=== PATIENT | female | born 1990 | race Caucasian/White ===

== ENCOUNTER → 2016-08-06 | Outpatient (CLI) | payer BC, OTHER | LOC: MW.CHFP 09:22 | PROVIDERS: ATTEND Physician Assistant | DX: J02.0 Streptococcal pharyngitis (principal) | CPT/HCPCS: 87880 ==

== ENCOUNTER 2016-08-07 04:48 | Observation (INO) | payer BC, OTHER ==
[2016-08-07] MEDS ORDERED: cefTRIAXone 1,000 MG in Sodium Chloride 0.9% 50 ML IV ONE (05:16)
[2016-08-07] MEDS ORDERED: Ondansetron 4 MG/2 ML SDV IVPUSH PRN (05:16)
[2016-08-07] MEDS: Sodium Chloride 0.9% 1,000 ML IV SCH ×2 (05:25→11:11)
[2016-08-07] MEDS ORDERED: cefTRIAXone 1 GM in Premix Bag 1 BAG IV ONE (05:34)
--- NOTE | 2016-08-07 05:39 | EDM.PDOC ---
ED HPI GI/ABDOMINAL - General Chief Complaint: Gastrointestinal Problem Stated Complaint: THROWING UP Time Seen by Provider: 08/07/16 05:00 Source of Information: Reports: Patient, Family, RN - History of Present Illness INITIAL COMMENTS - FREE TEXT/NARRATIVE: She presented to the emergency department with about a 24-hour history of vomiting and diarrhea. She recently was diagnosed with strep throat. She took one dose of azithromycin. She wonders if the erythromycin may have caused her vomiting and diarrhea. 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: - Infectious Disease History Infectious Disease History: Reports: Chicken pox Social & Family History - Family History Family Medical History: Noncontributory - Tobacco Use Smoking Status *Q: Never Smoker Second Hand Smoke Exposure: No - Caffeine Use Caffeine Use: Reports: Coffee Caffeine Use Comment: 2cups/day - Alcohol Use Days Per Week of Alcohol Use: 0 - Recreational Drug Use Recreational Drug Use: No ED ROS GENERAL - Review of Systems Review Of Systems: See Below Constitutional: Denies: fever HEENT: Reports: Other (She has a sore throat.) Respiratory: Denies: Shortness of Breath, Cough, Sputum Cardiovascular: Denies: Chest pain GI/Abdominal: Reports: Abdominal pain, Diarrhea (Some abdominal cramping.) ED EXAM, GI/ABD - Physical Exam Exam: See Below General Appearance: alert Throat/Mouth: Other (Mild to moderate posterior pharyngeal erythema noted.) Head: other (Moist oral mucosa) Neck: supple Respiratory/Chest: no respiratory distress, lungs clear Cardiovascular: regular rate, rhythm GI/Abdominal: soft, non tender Comments: Normal mentation Course - Vital Signs Last Recorded V/S: Last Vital Signs Temp 97.7 F 08/07/16 07:00 Pulse 86 08/07/16 07:00 Resp 16 08/07/16 07:00 BP 105/70 08/07/16 07:00 Pulse Ox 97 08/07/16 07:00 - Orders/Labs/Meds Orders: Active Orders 24 hr Category Date Time Status Ondansetron [Zofran] Med 08/07/16 05:16 Active 4 mg IVPUSH Q4H PRN Sodium Chloride 0.9% [Normal Saline] 1,000 ml Med 08/07/16 05:30 Active IV ASDIRECTED Medication Orders Sodium Chloride (Normal Saline) 1,000 mls @ 500 mls/hr IV ASDIRECTED NOLA Last Admin: 08/07/16 05:25 Dose: 500 mls/hr Ondansetron HCl (Zofran) 4 mg IVPUSH Q4H PRN PRN Reason: Nausea Last Admin: 08/07/16 05:45 Dose: 4 mg Labs: Laboratory Tests 08/07/16 08/07/16 08/07/16 Range/Units 05:25 05:25 05:25 WBC 9.45 (4.0-11.0) K/uL RBC 5.11 (4.30-5.90) M/uL Hgb 15.3 (12.0-16.0) g/dL Hct 45.9 (36.0-46.0) % MCV 89.8 (80.0-98.0) fL MCH 29.9 (27.0-32.0) pg MCHC 33.3 (31.0-37.0) g/dL RDW Std Deviation 43.0 (28.0-62.0) fl RDW Coeff of Magalie 13 (11.0-15.0) % Plt Count 176 (150-400) K/uL MPV 10.70 (7.40-12.00) fL Neut % (Auto) 89.7 H (48.0-80.0) % Lymph % (Auto) 4.0 L (16.0-40.0) % Dawson % (Auto) 6.0 (0.0-15.0) % Eos % (Auto) 0.2 (0.0-7.0) % Baso % (Auto) 0.1 (0.0-1.5) % Neut # (Auto) 8.5 H (1.4-5.7) K/uL Lymph # (Auto) 0.4 L (0.6-2.4) K/uL Dawson # (Auto) 0.6 (0.0-0.8) K/uL Eos # (Auto) 0.0 (0.0-0.7) K/uL Baso # (Auto) 0.0 (0.0-0.1) K/uL Nucleated RBC % 0.0 /100WBC Nucleated RBCs # 0 K/uL Sodium 141 (136-146) mmol/L Potassium 4.3 (3.5-5.1) mmol/L Chloride 108 (98-110) mmol/L Carbon Dioxide 19 L (21-31) mmol/L BUN 13 (6.0-23.0) mg/dL Creatinine 0.8 (0.6-1.5) mg/dL Est Cr Clr Drug Dosing 84.11 mL/min Estimated GFR (MDRD) > 60.0 ml/min Glucose 97 (60-110) mg/dL Calcium 9.2 (8.8-10.8) mg/dL Magnesium 1.7 (1.5-2.3) mEq/L Total Bilirubin 0.8 (0.1-1.5) mg/dL AST 19 (5-40) IU/L ALT 15 (8-54) IU/L Alkaline Phosphatase 60 (40-150) Total Protein 8.4 H (6.0-8.0) g/dL Albumin 4.8 (3.5-5.0) g/dL Globulin 3.6 H (2.0-3.5) g/dL Albumin/Globulin Ratio 1.3 (1.3-2.8) HCG, Qual NEGATIVE (NEG) Meds: Medications Generic Name Dose Route Start Last Admin Trade Name Freq PRN Reason Stop Dose Admin Sodium Chloride 1,000 mls @ 500 mls/hr 08/07/16 05:30 08/07/16 05:25 Normal Saline IV 500 mls/hr ASDIRECTED NOLA Administration Ondansetron HCl 4 mg 08/07/16 05:16 08/07/16 05:45 Zofran IVPUSH 4 mg Q4H PRN Administration Nausea Discontinued Medications Generic Name Dose Route Start Last Admin Trade Name Freq PRN Reason Stop Dose Admin Ceftriaxone Sodium 1,000 mg/ 50 mls @ 200 mls/hr 04/01/17 05:16 08/07/16 06: 12 Sodium Chloride IV 08/07/16 05:30 Not Given ONETIME ONE Ceftriaxone Sodium/Dextrose 1 50 mls @ 100 mls/hr 08/07/16 05:34 08/07/16 05: 46 gm/ Premix IV 08/07/16 06:03 100 mls/hr ONETIME ONE Administration Departure - Departure Time of Disposition: 07:13 Disposition: Refer to Observation Clinical Impression: Dehydration, Gastroenteritis Forms: ED Department Discharge Additional Instructions: She has an anion gap of over 20. Recommended observation the hospital for further IV fluids. I discussed this with the patient and her family. I discussed with Dr. Marinelli who will be accepting physician - My Orders Last 24 Hours: My Active Orders 08/07/16 05:16 Ondansetron [Zofran] 4 mg IVPUSH Q4H PRN 08/07/16 05:30 Sodium Chloride 0.9% [Normal Saline] 1,000 ml IV ASDIRECTED - Assessment/Plan Last 24 Hours: My Active Orders 08/07/16 05:16 Ondansetron [Zofran] 4 mg IVPUSH Q4H PRN 08/07/16 05:30 Sodium Chloride 0.9% [Normal Saline] 1,000 ml IV ASDIRECTED
[2016-08-07 06:06] LABS: CHLORIDE,CL 108 mmol/L (98-110); SODIUM,NA 141 mmol/L (136-146)
[2016-08-07] MEDS ORDERED: Acetaminophen 325 MG Tab PO PRN (07:17)
[2016-08-07 14:34] LABS: CHLORIDE,CL 114 mmol/L (98-110); SODIUM,NA 142 mmol/L (136-146)
[2016-08-07 17:32] VITALS: BP 115/76
--- NOTE | 2016-08-07 18:42 | PCM.DCSUM1 ---
Discharge Summary - Hospital Course Free Text/Narrative:: sudden onset severe N&V and watery diarrhea. 2 y o daughter mild respiratory sx , no overt contact with sick people or animals, no travel Improved with IV fluids, one dose odansetron given, diet advanced and tolerated with no further emesis, though watery and now blood red bowel movement ( from food coloring, negative for occult blood) Pt stable and eager to go home continue nursing her - Discharge Data Discharge Date: 08/07/16 Discharge Disposition: Home, Self-Care 01 Condition: Good - Patient Instructions Diet: Drink 8-10+ Glasses/Day Activity: As Tolerated - Discharge Plan Home Medications: Home Meds PNV95/Ferrous Fumarate/FA [ Multivitamins] 1 each PO DAILY 02/19/14 [ History] Azithromycin 500 mg PO DAILY 08/07/16 [History] - Discharge Summary/Plan Comment DC Time >30 min.: No - Patient Data Vitals - Most Recent: Last Vital Signs Temp 37.0 C 08/07/16 15:00 Pulse 92 08/07/16 15:00 Resp 16 08/07/16 15:00 BP 115/76 08/07/16 15:00 Pulse Ox 97 08/07/16 15:00 Weight - Most Recent: 50 kg I&O - Last 24 hours: Intake & Output 08/07/16 08/07/16 08/07/16 06:59 14:59 22:59 Intake Total 541 Balance 541 Lab Results - Last 24 hrs: Laboratory Results - last 24 hr 08/07/16 08/07/16 Range/Units 14:05 14:05 Sodium 142 (136-146) mmol/L Potassium 3.8 (3.5-5.1) mmol/L Chloride 114 H (98-110) mmol/L Carbon Dioxide 21 (21-31) mmol/L BUN 8 (6.0-23.0) mg/dL Creatinine 0.7 (0.6-1.5) mg/dL Est Cr Clr Drug Dosing TNP Estimated GFR (MDRD) > 60.0 ml/min Glucose 85 (60-110) mg/dL Calcium 7.7 L (8.8-10.8) mg/dL Magnesium 1.6 (1.5-2.3) mEq/L JAYDON Results - Last 24 hrs: Microbiology 08/07/16 17:00 Stool Occult Blood (JAYDON) - Final Stool / Feces NEGATIVE OCCULT BLOOD Med Orders - Current: Current Medications Acetaminophen (Tylenol) 650 mg PO Q4H PRN PRN Reason: Pain (Mild 1-3)/fever Sodium Chloride (Normal Saline) 1,000 mls @ 200 mls/hr IV ASDIRECTED NOLA Last Admin: 08/07/16 11:11 Dose: 500 mls/hr Ondansetron HCl (Zofran) 4 mg IVPUSH Q4H PRN PRN Reason: Nausea Last Admin: 08/07/16 05:45 Dose: 4 mg Discontinued Medications Ceftriaxone Sodium 1,000 mg/ (Sodium Chloride) 50 mls @ 200 mls/hr IV ONETIME ONE Stop: 08/07/16 05:30 Last Admin: 08/07/16 06:12 Dose: Not Given Ceftriaxone Sodium/Dextrose 1 (gm/ Premix) 50 mls @ 100 mls/hr IV ONETIME ONE Stop: 08/07/16 06:03 Last Admin: 08/07/16 05:46 Dose: 100 mls/hr *Q Meaningful Use (DIS) - VTE *Q VTE Criteria *Q: - Stroke *Q Stroke Criteria *Q: - AMI *Q AMI Criteria *Q:
--- NOTE | 2016-08-11 15:42 | PCM.HP ---
H&P History of Present Illness - General Date of Service: 08/07/16 Admit Problem/Dx: Admission Diagnosis/Problem Admission Diagnosis/Problem Dehydration - History of Present Illness Initial Comments - Free Text/Narative: 26 y o woman recently started on azithromycin for strep throat comes in with severe N&V and diarrhea No travel orc ontact with overtly ill people Onset of Symptoms: Reports: today Duration of Symptoms: Reports: Hour(s):, Getting worse abdominal area Pain Score (Numeric/FACES): 1 - Related Data Allergies/Adverse Reactions: Allergies Allergy/AdvReac Type Severity Reaction Status Date / Time amoxicillin [Amoxicillin] Allergy Unknown Rash Verified 08/07/16 04:56 Sulfa (Sulfonamide Allergy Unknown Rash Verified 08/07/16 04:56 Antibiotics) Home Medications: Home Meds PNV95/Ferrous Fumarate/FA [ Multivitamins] 1 each PO DAILY 02/19/14 [ History] Azithromycin 500 mg PO DAILY 08/07/16 [History] Past Medical History - Past Health History Medical/Surgical History: Denies Medical/Surgical History HEENT History: Reports: Impaired vision Other 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 History: 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 glasses 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 ) - Infectious Disease History Infectious Disease History: Reports: Chicken pox Social & Family History - Family History Family Medical History: Noncontributory - Tobacco Use Smoking Status *Q: Never Smoker Second Hand Smoke Exposure: No - Caffeine Use Caffeine Use: Reports: Coffee Caffeine Use Comment: 2cups/day - Alcohol Use Alcohol Use History: No Days Per Week of Alcohol Use: 0 - Recreational Drug Use Recreational Drug Use: No H&P Review of Systems - Review of Systems: Review Of Systems: See Below General: Reports: weakness HEENT: Reports: other (sore throat better) Pulmonary: Reports: No Symptoms Cardiovascular: Reports: no symptoms Gastrointestinal: Reports: Diarrhea, Nausea, Vomiting Genitourinary: Reports: no symptoms Musculoskeletal: Reports: no symptoms Skin: Reports: no symptoms Hematologic/Lymphatic: Reports: no symptoms Immunologic: Reports: no symptoms Exam - Exam Exam: See Below - Vital Signs Vital Signs: Last Vital Signs Temp 37.0 C 08/07/16 15:00 Pulse 92 08/07/16 15:00 Resp 16 08/07/16 15:00 BP 115/76 08/07/16 15:00 Pulse Ox 97 08/07/16 15:00 Weight: 50 kg - Exam General: alert, oriented HEENT: Conjunctiva clear, Mucosa moist & pink, Posterior pharynx clear (mild erythema no exudate) Neck: No: lymphadenopathy Lungs: Clear to auscultation Cardiovascular: regular rate Abdomen: soft. No: guarding Rectal (Female) Exam: Deferred Extremities: normal inspection Skin: warm Psychiatric: normal affect - Patient Data Result Diagrams: 08/07/16 05:25 08/07/16 14:05 *Q Meaningful Use (ADM) - VTE *Q VTE Criteria *Q: - Stroke *Q Stroke Criteria *Q: - AMI *Q AMI Criteria *Q: Problem List Initiated/Reviewed/Updated: Yes Assessment/Plan Comment:: gastroenteritis dehydration questionable strep throat will continue aggressive rehydration started in ER hold azithromycin for questionable indication and liink to symptoms
== END 2016-08-07 19:00 | disposition home or self-care (01) ==
LOC: MW.ED 04:48 → MW.MS 07:17
PROVIDERS: ADMIT Family Medicine; ATTEND Internal Medicine
DX: R11.2 Nausea with vomiting, unspecified (principal); R19.7 Diarrhea, unspecified; Z79.899 Other long term (current) drug therapy
CPT/HCPCS: 80048; 80053; 82272; 83735; 84703; 85025; 96361; 96365; 96375; 99285; G0378; J0696; J2405; J7040; 99284

== ENCOUNTER 2017-07-27 18:12 | Emergency (ER) | payer BC ==
[2017-07-27] MEDS ORDERED: Acetaminophen/HYDROcodone 325-5 MG Tab PO ONE (18:18)
[2017-07-27] MEDS ORDERED: Ketorolac 60 MG/2 ML SDV IM ONE (18:18)
--- NOTE | 2017-07-27 18:20 | EDM.PDOC ---
ED HPI GENERAL MEDICAL PROBLEM - General Stated Complaint: BACK PAIN Time Seen by Provider: 07/27/17 18:13 - History of Present Illness INITIAL COMMENTS - FREE TEXT/NARRATIVE: HISTORY AND PHYSICAL: History of present illness: Patient is 27-year-old female presents with a concern of lower back pain 2-3 months she does have a follow-up appointment within next week but has been unable to tolerate the discomfort she denies numbness weakness denies incontinence or retention of bowel or bladder nice trauma nice denies vaginal discharge or irregular bleeding denies urinary symptoms Review of systems: As per history of present illness and below otherwise all systems reviewed and negative. Past medical history: As per history of present illness and as reviewed below otherwise noncontributory. Surgical history: As per history of present illness and as reviewed below otherwise noncontributory. Social history: No reported history of drug or alcohol abuse. Family history: As per history of present illness and as reviewed below otherwise noncontributory. Physical exam: HEENT: Atraumatic, normocephalic, pupils reactive, negative for conjunctival pallor or scleral icterus, mucous membranes moist, throat clear, neck supple, nontender, trachea midline. Lungs: Clear to auscultation, breath sounds equal bilaterally, chest nontender. Heart: S1S2, regular, negative for clicks, rubs, or JVD. Abdomen: Soft, nondistended, nontender. Negative for masses or hepatosplenomegaly. Negative for costovertebral tenderness. Pelvis: Stable nontender. Genitourinary: Deferred. Rectal: Deferred. Extremities: Atraumatic, negative for cords or calf pain. Neurovascular unremarkable. Neuro: Awake, alert, oriented. Cranial nerves II through XII unremarkable. Cerebellum unremarkable. Motor and sensory unremarkable throughout. Exam nonfocal. Back: Patient has tenderness in the paravertebral region of her lumbosacral area is no vertebral body or point tenderness patient able stand on her toes back on her heels deep tendon reflexes are normal motor and sensory are normal Diagnostics: X-ray lumbar spine Therapeutics: Toradol 60 mg IM hydrocodone 5 mg by mouth Impression: #1 low back pain etiology to be determined Definitive disposition and diagnosis as appropriate pending reevaluation and review of above. 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 ED EXAM, GENERAL - Physical Exam Exam: See Below (See dictation) Course - Vital Signs Last Recorded V/S: Last Vital Signs Temp 36.7 C 07/27/17 18:25 Pulse 86 07/27/17 18:25 Resp 18 07/27/17 18:25 BP 135/74 07/27/17 18:25 Pulse Ox 100 07/27/17 18:25 - Orders/Labs/Meds Orders: Active Orders 24 hr Category Date Time Status Lumbar Spine 2 or 3V [CR] Stat Exams 07/27/17 18:18 Ordered Meds: Medications Discontinued Medications Generic Name Dose Route Start Last Admin Trade Name Hank PRN Reason Stop Dose Admin Hydrocodone Bitart/Acetaminophen 1 tab 07/27/17 18:18 07/27/17 18:33 [place] 325-5 Mg PO 07/27/17 18:19 1 tab ONETIME ONE Administration Ketorolac Tromethamine 60 mg 07/27/17 18:18 07/27/17 18:35 Toradol IM 07/27/17 18:19 60 mg ONETIME ONE Administration Departure - Departure Time of Disposition: 18:50 Disposition: Home, Self-Care 01 Condition: Good Clinical Impression: Back pain - Discharge Information Referrals: Marcus Collazo MD [Primary Care Provider] - Additional Instructions: The following information is given to patients seen in the emergency department who are being discharged to home. This information is to outline your options for follow-up care. We provide all patients seen in our emergency department with a follow-up referral. The need for follow-up, as well as the timing and circumstances, are variable depending upon the specifics of your emergency department visit. If you don't have a primary care physician on staff, we will provide you with a referral. We always advise you to contact your personal physician following an emergency department visit to inform them of the circumstance of the visit and for follow-up with them and/or the need for any referrals to a consulting specialist. The emergency department will also refer you to a specialist when appropriate. This referral assures that you have the opportunity for followup care with a specialist. All of these measure are taken in an effort to provide you with optimal care, which includes your followup. Under all circumstances we always encourage you to contact your private physician who remains a resource for coordinating your care. When calling for followup care, please make the office aware that this follow-up is from your recent emergency room visit. If for any reason you are refused follow-up, please contact the [facility] emergency department at and asked to speak to the emergency department charge nurse. Hydrocodone Flexeril Medrol as prescribed keep scheduled appointment with private medical doctor return as needed as discussed - My Orders Last 24 Hours: My Active Orders 07/27/17 18:18 Lumbar Spine 2 or 3V [CR] Stat - Assessment/Plan Last 24 Hours: My Active Orders 07/27/17 18:18 Lumbar Spine 2 or 3V [CR] Stat
[2017-07-27 19:41] VITALS: BP 118/76
--- NOTE | 2017-07-28 10:47 | CR ---
EXAM DATE: 07/27/17 PATIENT'S AGE: 27 Patient: ANA GO Facility: [place], [place] Site . Site : 1990 Study: XRay Spine Lumbar [id number]/[id number] 7:05:55 PM Ordering Physician: Kya Raymundo Final Report: INDICATION: Low back pain TECHNIQUE: Lumbar spine 4 view. COMPARISON: None FINDINGS: Bones: Alignment is normal. No fractures or significant bone lesions. Joints: Disc spaces and facets are unremarkable. Soft tissues: Unremarkable. IMPRESSION: Unremarkable lumbar spine. Dictated by Margie Hong MD @ Jul 27 2017 7:22PM (Electronic Signature) Report Signed by Proxy. NICOLASA
== END 2017-07-27 19:40 | disposition home or self-care (01) ==
LOC: MW.ED 18:12
DX: M54.5 Low back pain (principal); Z88.1 Allergy status to other antibiotic agents; Z88.2 Allergy status to sulfonamides
CPT/HCPCS: 72100; 96372; 99283; A9270; J1885; 99282

== ENCOUNTER 2018-12-05 15:33 | Inpatient (IN) | payer BC ==
[2018-12-05] MEDS ORDERED: Sodium Chloride 0.9% 2.5 ML Syringe FLUSH PRN (15:56)
[2018-12-05] MEDS ORDERED: Nalbuphine 10 MG/1 ML Vial IVPUSH PRN (15:56)
[2018-12-05] MEDS ORDERED: Water For Irrigation,Sterile 1,000 ML Container IRR PRN (15:56)
[2018-12-05] MEDS ORDERED: Methylergonovine 0.2 MG/1 ML Amp IM PRN (15:56)
[2018-12-05] MEDS ORDERED: Misoprostol 200 MCG Tab PO PRN (15:56)
[2018-12-05] MEDS ORDERED: Ondansetron 4 MG/2 ML SDV IVPUSH PRN (15:56)
[2018-12-05] MEDS ORDERED: Carboprost Tromethamine 250 MCG/1 ML Amp IM PRN (15:56)
[2018-12-05] MEDS ORDERED: Butorphanol 1 MG/ML SDV IVPUSH PRN (15:56)
[2018-12-05] MEDS ORDERED: Sodium Chloride 0.9% 10 ML Syringe FLUSH PRN (15:56)
[2018-12-05] MEDS ORDERED: Lidocaine 1% 50 ML MDV INJECT PRN (15:56)
[2018-12-05] MEDS ORDERED: Sodium Chloride 0.9% 10 ML SDV IV PRN (15:56)
[2018-12-05] MEDS ORDERED: Tranexamic Acid 1,000 MG in Sodium Chloride 0.9% 100 ML IV PRN (15:56)
[2018-12-05] MEDS ORDERED: Lactated Ringers 1,000 ML IV SCH (16:00)
[2018-12-05] MEDS ORDERED: Oxytocin/0.9 % Sodium Chloride 30 UNIT/500 ML BAG IV SCH (16:00)
[2018-12-05] MEDS ORDERED: ceFAZolin 2 GM in Premix Bag 1 BAG IV ONE (16:08)
[2018-12-05] MEDS ORDERED: oxyCODONE 5 MG Tab PO PRN (18:10)
[2018-12-05] MEDS ORDERED: Benzocaine/Menthol 20%-0.5% Spray 78 GM Cannister TOP PRN (18:10)
[2018-12-05] MEDS ORDERED: Docusate Sodium 100 MG Cap PO PRN (18:10)
[2018-12-05] MEDS ORDERED: Ibuprofen 400 MG Tab PO PRN (18:10)
[2018-12-05] MEDS ORDERED: Lanolin 100% Cream 7 GM Tube TOP PRN (18:10)
[2018-12-05] MEDS ORDERED: Witch Hazel Medicated Pads 40/Jar TOP PRN (18:10)
[2018-12-05] MEDS ORDERED: Aluminum Hydroxide/Magnesium Hydroxide/Simethicone Susp 30 ML Cup PO PRN (18:10)
[2018-12-05] MEDS ORDERED: Acetaminophen 500 MG Tab PO PRN ×2 (18:10)
[2018-12-05] MEDS ORDERED: Bisacodyl 10 MG Supp RECTAL PRN (18:10)
--- NOTE | 2018-12-05 18:13 | PCM.OPNOTE ---
- General Post-Op/Procedure Note Date of Surgery/Procedure: 12/05/18 Operative Procedure(s): Vaginal delivery, repair of 2nd degree vaginal tear Findings: Live male delivered. Terminal meconium. 8 and 8, weight pending, spontaneous vaginal delivery, intact placenta, 3VC Pre Op Diagnosis: 28yo female at 40/4 presenting in active labor Post-Op Diagnosis: Spontaneous vaginal delivery, 2nd degree vaginal tear Anesthesia Technique: Local Primary Surgeon: Dee Dee Montgomery Traveling Operator: Alisha Mckinney Role of Traveling Operator: Medical Student, 4th year Fluid Replacement, Intraop: 0 EBL in mLs: 250 Condition: Good Free Text/Narrative:: Dictation [id number]
--- NOTE | 2018-12-05 19:04 | OR ---
SURGEON: Dee Dee Montgomery M.D. DATE OF PROCEDURE: 12/05/2018 PREOPERATIVE DIAGNOSES: 1. 40-4/7 weeks' intrauterine . 2. Active labor. POSTOPERATIVE DIAGNOSES: 1. 40-4/7 weeks' intrauterine . 2. Active labor. PROCEDURES: Spontaneous vaginal delivery, second-degree midline laceration repair. PRIMARY SURGEON: Dee Dee Montgomery MD. CERTIFIED MEDICATION TECHNICIAN: . ANESTHESIA: Local. ESTIMATED BLOOD LOSS: 250 mL. COMPLICATIONS: None known. FINDINGS: Viable male. scores 8 at 1 minute and 8 at 5 minutes. Weight is pending. Spontaneous delivery, intact placenta, 3-vessel cord. DISPOSITION: Infant to nursery, mom in LDRP. PROCEDURE DETAILS: Lian is a 28-year-old, G3, P2, at 40-4/7 weeks' gestational age, who presents this afternoon with regular contractions. On initial examination, she was found to be 6 cm, 90% effaced, and minus 2 station. Therefore, she was admitted, routine labs were drawn, IV hydration was initiated. The patient became increasingly uncomfortable, progressed to 8 cm. She is group B beta strep positive and has received Ancef prophylactically as she is allergic to amoxicillin. The group B strep culture was sensitive to Ancef. heart tones were category 1. At this juncture, the patient underwent amniotomy. Within 15 minutes, progressed to complete, 100% effaced, at a +2 station, feeling the urge to push. She was placed in modified dorsal lithotomy position, was prepped and draped in the usual aseptic manner. With the next 2 contractions, was able to push to deliver infant's head atraumatically spontaneously followed by anterior shoulder, posterior shoulder, and remainder of the body without difficulty. The infant's oropharynx and nares were bulb suctioned. had been handed off to mother with attending nursing staff at side. After a delay, the cord was clamped x2 and cut. Cord arterial, cord venous, cord blood sampling obtained. Light pressure was applied while the placenta was delivered spontaneously intact. Vigorous fundal uterine massage was then applied while 30 units of Pitocin was delivered in 500 mL IV fluid. Upon inspection of cervix, vaginal sidewalls, and perineum, there was found to be a second-degree midline laceration. This was repaired using 3-0 Vicryl in the usual fashion after prepping the regions with approximately 8 mL of 1% lidocaine. Uterus remained firm. The instrument count, needle count, and sponge count were correct. The patient remains stable with hemostasis evident. ELDA LARA /[id number]
[2018-12-05] MEDS: Ibuprofen 800 MG Tab PO PRN (19:43)
[2018-12-06] MEDS ORDERED: ceFAZolin 1 GM Vial IV ONE (00:30)
[2018-12-06] MEDS ORDERED: ceFAZolin 1 GM in Premix Bag 1 BAG IV SCH (00:30)
[2018-12-06] MEDS: Ibuprofen 800 MG Tab PO PRN ×3 (02:34→22:57)
--- NOTE | 2018-12-06 08:42 | PCM.PNPP ---
- General Info Date of Service: 12/06/18 Subjective Update: No complaints, baby has not breastfed yet. Functional Status: Reports: Pain Controlled, Tolerating Diet, Ambulating, Urinating - Review of Systems General: Reports: No Symptoms HEENT: Reports: No Symptoms Pulmonary: Reports: No Symptoms Cardiovascular: Reports: No Symptoms Gastrointestinal: Reports: No Symptoms Genitourinary: Reports: No Symptoms Musculoskeletal: Reports: No Symptoms Skin: Reports: No Symptoms Neurological: Reports: No Symptoms Psychiatric: Reports: No Symptoms - General Info Date of Service: 12/06/18 - Patient Data Vital Signs - Most Recent: Last Vital Signs Temp 36.3 C 12/06/18 04:00 Pulse 77 12/06/18 04:00 Resp 18 12/06/18 04:00 BP 141/76 H 12/06/18 04:00 Pulse Ox 96 12/06/18 04:00 Weight - Most Recent: 64.41 kg I&O - Last 24 Hours: Intake & Output 12/05/18 12/06/18 12/06/18 22:59 06:59 14:59 Intake Total 0 Balance 0 Lab Results - Last 24 Hours: Laboratory Results - last 24 hr 12/05/18 12/05/18 12/05/18 Range/Units 16:43 16:43 18:11 WBC 11.78 H (4.0-11.0) K/uL RBC 4.93 (4.30-5.90) M/uL Hgb 14.4 (12.0-16.0) g/dL Hct 43.9 (36.0-46.0) % MCV 89.0 (80.0-98.0) fL MCH 29.2 (27.0-32.0) pg MCHC 32.8 (31.0-37.0) g/dL RDW Std Deviation 45.0 (28.0-62.0) fl RDW Coeff of Magalie 14 (11.0-15.0) % Plt Count 132 L (150-400) K/uL MPV 11.80 (7.40-12.00) fL Nucleated RBC % 0.0 /100WBC Nucleated RBCs # 0 K/uL Cord ABG pH 7.190 (7.18-7.38) Cord ABG Base Excess -8 (-10--2) Cord VBG pH 7.287 (7.25-7.45) Cord VBG Base Excess -9 (-10--2) Blood Type A POSITIVE Antibody Screen NEGATIVE 12/06/18 Range/Units 06:10 WBC (4.0-11.0) K/uL RBC (4.30-5.90) M/uL Hgb 12.7 (12.0-16.0) g/dL Hct 39.1 (36.0-46.0) % MCV (80.0-98.0) fL MCH (27.0-32.0) pg MCHC (31.0-37.0) g/dL RDW Std Deviation (28.0-62.0) fl RDW Coeff of Magalie (11.0-15.0) % Plt Count (150-400) K/uL MPV (7.40-12.00) fL Nucleated RBC % /100WBC Nucleated RBCs # K/uL Cord ABG pH (7.18-7.38) Cord ABG Base Excess (-10--2) Cord VBG pH (7.25-7.45) Cord VBG Base Excess (-10--2) Blood Type Antibody Screen Med Orders - Current: Current Medications Acetaminophen (Tylenol Extra Strength) 500 mg PO Q4H PRN PRN Reason: Pain Acetaminophen (Tylenol Extra Strength) 1,000 mg PO Q4H PRN PRN Reason: Pain Last Admin: 12/06/18 04:56 Dose: 1,000 mg Al Hydroxide/Mg Hydroxide (Mag-Al Plus) 30 ml PO Q8H PRN PRN Reason: Heartburn Benzocaine/Menthol (Dermoplast Pain Relief 20%-0.5% [place]) 78 gm TOP ASDIRECTED PRN PRN Reason: Perineal Comfort Measure Last Admin: 12/05/18 22:23 Dose: 1 can Bisacodyl (Dulcolax) 10 mg RECTAL ONETIME PRN PRN Reason: Constipation Docusate Sodium (Colace) 100 mg PO BID PRN PRN Reason: Constipation Emollient Ointment (Lansinoh Hpa) 0 gm TOP ASDIRECTED PRN PRN Reason: Sore Nipples Last Admin: 12/05/18 22:23 Dose: 1 tube Lactated Ringer's (Ringers, Lactated) 1,000 mls @ 150 mls/hr IV ASDIRECTED [place] Oxytocin/Sodium Chloride (Oxytocin 30 Unit/500 Ml-Ns) 30 unit in 500 mls @ 500 mls/hr IV TITRATE [place] Last Admin: 12/05/18 17:55 Dose: 500 mls/hr Tranexamic Acid 1,000 mg/ (Sodium Chloride) 110 mls @ 660 mls/hr IV ONETIME PRN PRN Reason: Bleeding Ibuprofen (Motrin) 400 mg PO Q4H PRN PRN Reason: Pain Ibuprofen (Motrin) 800 mg PO Q6H PRN PRN Reason: Pain Last Admin: 12/06/18 07:56 Dose: 800 mg Methylergonovine Maleate (Methergine) 0.2 mg IM ASDIRECTED PRN PRN Reason: Post Hemorrhage Oxycodone HCl (Oxycodone) 5 mg PO Q2H PRN PRN Reason: Pain Sodium Chloride (Saline Flush) 10 ml FLUSH ASDIRECTED PRN PRN Reason: Keep Vein Open Sodium Chloride (Saline Flush) 2.5 ml FLUSH ASDIRECTED PRN PRN Reason: Keep Vein Open Sodium Chloride (Normal Saline) 10 ml IV ASDIRECTED PRN PRN Reason: IV Use Sterile Water (Sterile Water For Irrigation) 1,000 ml IRR ASDIRECTED PRN PRN Reason: delivery Last Admin: 12/05/18 18:13 Dose: 1,000 ml Witch Lizz (Tucks) 1 pad TOP ASDIRECTED PRN PRN Reason: comfort care Last Admin: 12/05/18 22:23 Dose: 1 tub Discontinued Medications Butorphanol Tartrate (Stadol) 1 mg IVPUSH Q1H PRN PRN Reason: Pain Carboprost Tromethamine (Hemabate Ds) 250 mcg IM ASDIRECTED PRN PRN Reason: Post Hemorrhage Cefazolin Sodium/Dextrose 2 gm (/ Premix) 50 mls @ 100 mls/hr IV ONETIME ONE Stop: 12/05/18 16:37 Last Admin: 12/05/18 16:15 Dose: 100 mls/hr Cefazolin Sodium/Dextrose 1 gm (/ Premix) 50 mls @ 100 mls/hr IV Q8H [facility] Lidocaine HCl (Xylocaine 1%) 50 ml INJECT ONETIME PRN PRN Reason: Laceration repair Last Admin: 12/05/18 17:55 Dose: 50 ml Misoprostol (Cytotec) 200 mcg PO ONETIME PRN PRN Reason: Post Hemorrhage Nalbuphine HCl (Nubain) 10 mg IVPUSH Q1H PRN PRN Reason: Pain (severe 7-10) Ondansetron HCl (Zofran) 4 mg IVPUSH Q4H PRN PRN Reason: Nausea/Vomiting - Interaction Infant Disposition, : [place] in Room with Family Interaction: Holding Infant Feeding: Attempted ; Nursed Fair/Poor Support Person: - Recovery Exam Fundal Tone: Firm Fundal Level: 2 Fingerbreadths Below Umbilicus Fundal Placement: Midline Lochia Amount: Small Lochia Color: Rubra/Red Perineum Description: Other (see below) Other Perinuem Description: 2 degree laceration Episiotomy/Laceration: Approximated Bladder Status: Voiding Urinary Elimination: Voided - Exam General: Alert, Oriented HEENT: Pupils Equal Neck: Supple Lungs: Normal Respiratory Effort GI/Abdominal Exam: Soft, Non-Tender, No Organomegaly, No Distention Extremities: Normal Inspection, Non-Tender, No Pedal Edema Skin: Warm, Dry, Intact Neurological: No New Focal Deficit Psy/Mental Status: Alert, Normal Affect, Normal Mood - Problem List & Annotations (1) Vaginal delivery SNOMED Code(s): 844099135 Code(s): O80 - ENCOUNTER FOR FULL-TERM UNCOMPLICATED DELIVERY Status: Acute Current Visit: No - Problem List Review Problem List Initiated/Reviewed/Updated: Yes - Assessment Assessment:: PPD#1 after , stable minimal lochia, minimal pain. Baby has not breastfed much yet. Unsure if they will go home today due to GBS status and . - Plan Plan:: Continue care.
[2018-12-07] MEDS: Ibuprofen 800 MG Tab PO PRN ×2 (06:57→13:43)
--- NOTE | 2018-12-07 07:56 | PCM.PNPP ---
<Alisha Mckinney - Last Filed: 12/07/18 07:53> - General Info Date of Service: 12/07/18 Functional Status: Reports: Pain Controlled - Review of Systems General: Reports: No Symptoms. Denies: Weakness, Fatigue HEENT: Reports: No Symptoms. Denies: Headaches Pulmonary: Reports: No Symptoms. Denies: Shortness of Breath, Pleuritic Chest Pain, Cough, Wheezing Cardiovascular: Reports: No Symptoms. Denies: Chest Pain, Palpitations, Orthopnea, PND, Edema, Lightheadedness Gastrointestinal: Reports: No Symptoms Genitourinary: Reports: No Symptoms. Denies: Dysuria, Burning Musculoskeletal: Reports: No Symptoms Skin: Reports: No Symptoms Neurological: Reports: No Symptoms Psychiatric: Reports: No Symptoms - General Info Date of Service: 12/07/18 - Patient Data Vital Signs - Most Recent: Last Vital Signs Temp 97.1 F 12/07/18 05:03 Pulse 59 L 12/07/18 05:03 Resp 14 12/07/18 05:03 BP 118/56 L 12/07/18 05:03 Pulse Ox 95 12/07/18 05:03 Weight - Most Recent: 64.41 kg Med Orders - Current: Current Medications Acetaminophen (Tylenol Extra Strength) 500 mg PO Q4H PRN PRN Reason: Pain Acetaminophen (Tylenol Extra Strength) 1,000 mg PO Q4H PRN PRN Reason: Pain Last Admin: 12/06/18 04:56 Dose: 1,000 mg Al Hydroxide/Mg Hydroxide (Mag-Al Plus) 30 ml PO Q8H PRN PRN Reason: Heartburn Benzocaine/Menthol (Dermoplast Pain Relief 20%-0.5% [place]) 78 gm TOP ASDIRECTED PRN PRN Reason: Perineal Comfort Measure Last Admin: 12/05/18 22:23 Dose: 1 can Bisacodyl (Dulcolax) 10 mg RECTAL ONETIME PRN PRN Reason: Constipation Docusate Sodium (Colace) 100 mg PO BID PRN PRN Reason: Constipation Emollient Ointment (Lansinoh Hpa) 0 gm TOP ASDIRECTED PRN PRN Reason: Sore Nipples Last Admin: 12/05/18 22:23 Dose: 1 tube Lactated Ringer's (Ringers, Lactated) 1,000 mls @ 150 mls/hr IV ASDIRECTED [place] Oxytocin/Sodium Chloride (Oxytocin 30 Unit/500 Ml-Ns) 30 unit in 500 mls @ 500 mls/hr IV TITRATE [place] Last Admin: 12/05/18 17:55 Dose: 500 mls/hr Tranexamic Acid 1,000 mg/ (Sodium Chloride) 110 mls @ 660 mls/hr IV ONETIME PRN PRN Reason: Bleeding Ibuprofen (Motrin) 400 mg PO Q4H PRN PRN Reason: Pain Ibuprofen (Motrin) 800 mg PO Q6H PRN PRN Reason: Pain Last Admin: 12/07/18 06:57 Dose: 800 mg Methylergonovine Maleate (Methergine) 0.2 mg IM ASDIRECTED PRN PRN Reason: Post Hemorrhage Oxycodone HCl (Oxycodone) 5 mg PO Q2H PRN PRN Reason: Pain Sodium Chloride (Saline Flush) 10 ml FLUSH ASDIRECTED PRN PRN Reason: Keep Vein Open Sodium Chloride (Saline Flush) 2.5 ml FLUSH ASDIRECTED PRN PRN Reason: Keep Vein Open Sodium Chloride (Normal Saline) 10 ml IV ASDIRECTED PRN PRN Reason: IV Use Sterile Water (Sterile Water For Irrigation) 1,000 ml IRR ASDIRECTED PRN PRN Reason: delivery Last Admin: 12/05/18 18:13 Dose: 1,000 ml Witch Lizz (Tucks) 1 pad TOP ASDIRECTED PRN PRN Reason: comfort care Last Admin: 12/05/18 22:23 Dose: 1 tub Discontinued Medications Butorphanol Tartrate (Stadol) 1 mg IVPUSH Q1H PRN PRN Reason: Pain Carboprost Tromethamine (Hemabate Ds) 250 mcg IM ASDIRECTED PRN PRN Reason: Post Hemorrhage Cefazolin Sodium/Dextrose 2 gm (/ Premix) 50 mls @ 100 mls/hr IV ONETIME ONE Stop: 12/05/18 16:37 Last Admin: 12/05/18 16:15 Dose: 100 mls/hr Cefazolin Sodium/Dextrose 1 gm (/ Premix) 50 mls @ 100 mls/hr IV Q8H [facility] Lidocaine HCl (Xylocaine 1%) 50 ml INJECT ONETIME PRN PRN Reason: Laceration repair Last Admin: 12/05/18 17:55 Dose: 50 ml Misoprostol (Cytotec) 200 mcg PO ONETIME PRN PRN Reason: Post Hemorrhage Nalbuphine HCl (Nubain) 10 mg IVPUSH Q1H PRN PRN Reason: Pain (severe 7-10) Ondansetron HCl (Zofran) 4 mg IVPUSH Q4H PRN PRN Reason: Nausea/Vomiting - Infant Interaction Infant Disposition, : [place] in Room with Family Interaction: Holding Infant Infant Feeding: Attempted ; Nursed Fair/Poor Support Person: - Recovery Exam Fundal Tone: Firm Fundal Level: At Umbilicus Fundal Placement: Midline Lochia Amount: Scant Lochia Color: Rubra/Red Perineum Description: Other (see below) Other Perinuem Description: 2nd degree laceration with repair Episiotomy/Laceration: Approximated Bladder Status: Voiding Urinary Elimination: Voided - Problem List Review Problem List Initiated/Reviewed/Updated: Yes - Assessment Assessment:: PPD#2 after , stable minimal lochia, minimal pain. well. May be able to go home today. - Plan Plan:: Continue care. <Mireya Savage - Last Filed: 12/07/18 08:48> - Patient Data Vital Signs - Most Recent: Last Vital Signs Temp 36.2 C 12/07/18 05:03 Pulse 59 L 12/07/18 05:03 Resp 14 12/07/18 05:03 BP 118/56 L 12/07/18 05:03 Pulse Ox 95 12/07/18 05:03 Med Orders - Current: Current Medications Acetaminophen (Tylenol Extra Strength) 500 mg PO Q4H PRN PRN Reason: Pain Acetaminophen (Tylenol Extra Strength) 1,000 mg PO Q4H PRN PRN Reason: Pain Last Admin: 12/06/18 04:56 Dose: 1,000 mg Al Hydroxide/Mg Hydroxide (Mag-Al Plus) 30 ml PO Q8H PRN PRN Reason: Heartburn Benzocaine/Menthol (Dermoplast Pain Relief 20%-0.5% [place]) 78 gm TOP ASDIRECTED PRN PRN Reason: Perineal Comfort Measure Last Admin: 12/05/18 22:23 Dose: 1 can Bisacodyl (Dulcolax) 10 mg RECTAL ONETIME PRN PRN Reason: Constipation Docusate Sodium (Colace) 100 mg PO BID PRN PRN Reason: Constipation Emollient Ointment (Lansinoh Hpa) 0 gm TOP ASDIRECTED PRN PRN Reason: Sore Nipples Last Admin: 12/05/18 22:23 Dose: 1 tube Lactated Ringer's (Ringers, Lactated) 1,000 mls @ 150 mls/hr IV ASDIRECTED [place] Oxytocin/Sodium Chloride (Oxytocin 30 Unit/500 Ml-Ns) 30 unit in 500 mls @ 500 mls/hr IV TITRATE [place] Last Admin: 12/05/18 17:55 Dose: 500 mls/hr Tranexamic Acid 1,000 mg/ (Sodium Chloride) 110 mls @ 660 mls/hr IV ONETIME PRN PRN Reason: Bleeding Ibuprofen (Motrin) 400 mg PO Q4H PRN PRN Reason: Pain Ibuprofen (Motrin) 800 mg PO Q6H PRN PRN Reason: Pain Last Admin: 12/07/18 06:57 Dose: 800 mg Methylergonovine Maleate (Methergine) 0.2 mg IM ASDIRECTED PRN PRN Reason: Post Hemorrhage Oxycodone HCl (Oxycodone) 5 mg PO Q2H PRN PRN Reason: Pain Sodium Chloride (Saline Flush) 10 ml FLUSH ASDIRECTED PRN PRN Reason: Keep Vein Open Sodium Chloride (Saline Flush) 2.5 ml FLUSH ASDIRECTED PRN PRN Reason: Keep Vein Open Sodium Chloride (Normal Saline) 10 ml IV ASDIRECTED PRN PRN Reason: IV Use Sterile Water (Sterile Water For Irrigation) 1,000 ml IRR ASDIRECTED PRN PRN Reason: delivery Last Admin: 12/05/18 18:13 Dose: 1,000 ml Witch Lizz (Tucks) 1 pad TOP ASDIRECTED PRN PRN Reason: comfort care Last Admin: 12/05/18 22:23 Dose: 1 tub Discontinued Medications Butorphanol Tartrate (Stadol) 1 mg IVPUSH Q1H PRN PRN Reason: Pain Carboprost Tromethamine (Hemabate Ds) 250 mcg IM ASDIRECTED PRN PRN Reason: Post Hemorrhage Cefazolin Sodium/Dextrose 2 gm (/ Premix) 50 mls @ 100 mls/hr IV ONETIME ONE Stop: 12/05/18 16:37 Last Admin: 12/05/18 16:15 Dose: 100 mls/hr Cefazolin Sodium/Dextrose 1 gm (/ Premix) 50 mls @ 100 mls/hr IV Q8H [place] Lidocaine HCl (Xylocaine 1%) 50 ml INJECT ONETIME PRN PRN Reason: Laceration repair Last Admin: 12/05/18 17:55 Dose: 50 ml Misoprostol (Cytotec) 200 mcg PO ONETIME PRN PRN Reason: Post Hemorrhage Nalbuphine HCl (Nubain) 10 mg IVPUSH Q1H PRN PRN Reason: Pain (severe 7-10) Ondansetron HCl (Zofran) 4 mg IVPUSH Q4H PRN PRN Reason: Nausea/Vomiting - Problem List & Annotations (1) Vaginal delivery SNOMED Code(s): 366788530 Code(s): O80 - ENCOUNTER FOR FULL-TERM UNCOMPLICATED DELIVERY Status: Acute Current Visit: No - Problem List Review Problem List Initiated/Reviewed/Updated: Yes - My Orders Last 24 Hours: My Active Orders 12/07/18 08:47 Ready for Discharge [RC] PER UNIT ROUTINE - Plan Plan:: Agree with above, discharge instructions reviewed. Discharge to home today.
[2018-12-07 09:30] VITALS: BP 116/68; PULSE 85
== END 2018-12-07 14:52 | disposition home or self-care (01) | DRG 560 ==
LOC: MW.OBCHECK 15:33 → MW.OB 15:34 → MW.OBCHECK 15:47 → OBSVTOIN 17:41 → MW.OB 22:39
PROVIDERS: ADMIT Obstetrics & Gynecology; ATTEND Obstetrics & Gynecology
PROC: 10E0XZZ Delivery of Products of Conception, External Approach (ICD-10-PCS; principal; 2018-12-05)
PROC: 0KQM0ZZ Repair Perineum Muscle, Open Approach (ICD-10-PCS; 2018-12-05)
DX: O48.0 Post-term pregnancy (principal); O99.824 Streptococcus B carrier state complicating childbirth; O70.1 Second degree perineal laceration during delivery; O77.0 Labor and delivery complicated by meconium in amniotic fluid; Z3A.40 40 weeks gestation of pregnancy; Z37.0 Single live birth
CPT/HCPCS: 36415; 59025; 59409; 82803; 85014; 85018; 85027; 86850; 86900; 86901; A9270-GY; J0690; J2001; J2590

== ENCOUNTER 2021-05-11 04:59 | Inpatient (IN) | payer BC ==
[2021-05-11] MEDS ORDERED: Carboprost Tromethamine 250 MCG/1 ML Amp IM PRN (05:37)
[2021-05-11] MEDS ORDERED: Terbutaline 1 MG/ML SDV SUBCUT PRN (05:37)
[2021-05-11] MEDS ORDERED: Water For Irrigation,Sterile 1,000 ML Container IRR PRN (05:37)
[2021-05-11] MEDS ORDERED: Sodium Chloride 0.9% 10 ML Syringe FLUSH PRN (05:37)
[2021-05-11] MEDS ORDERED: Tranexamic Acid 1,000 MG in Sodium Chloride 0.9% 100 ML IV PRN (05:37)
[2021-05-11] MEDS ORDERED: Nalbuphine 10 MG/1 ML Vial IVPUSH PRN (05:37)
[2021-05-11] MEDS ORDERED: Sodium Chloride 0.9% 2.5 ML Syringe FLUSH PRN (05:37)
[2021-05-11] MEDS ORDERED: Butorphanol 1 MG/ML SDV IVPUSH PRN (05:37)
[2021-05-11] MEDS ORDERED: Misoprostol 25 MCG (1/4 of 100 MCG) Tab VAG PRN ×2 (05:37)
[2021-05-11] MEDS ORDERED: Sodium Chloride 0.9% 20 ML SDV IV PRN (05:37)
[2021-05-11] MEDS ORDERED: Lidocaine 1% 50 ML MDV INJECT PRN (05:37)
[2021-05-11] MEDS ORDERED: Misoprostol 200 MCG Tab PO PRN (05:37)
[2021-05-11] MEDS ORDERED: Methylergonovine 0.2 MG/1 ML Amp IM PRN (05:37)
[2021-05-11] MEDS ORDERED: Oxytocin/0.9 % Sodium Chloride 30 UNIT/500 ML BAG IV SCH ×2 (05:45)
[2021-05-11] MEDS ORDERED: Sodium Chloride 0.9% 20 ML SDV FLUSH PRN (05:45)
[2021-05-11] MEDS ORDERED: Lactated Ringers 1,000 ML IV SCH (05:45)
[2021-05-11] MEDS ORDERED: Lidocaine 1% 20 ML MDV ONE (07:53)
[2021-05-11] MEDS ORDERED: Lanolin 100% Cream 7 GM Tube TOP PRN (10:24)
[2021-05-11] MEDS ORDERED: Witch Hazel Medicated Pads 40/Jar TOP PRN (10:24)
[2021-05-11] MEDS ORDERED: oxyCODONE 5 MG Tab PO PRN (10:24)
[2021-05-11] MEDS ORDERED: Benzocaine/Menthol 20%-0.5% Spray 78 GM Cannister TOP PRN (10:24)
[2021-05-11] MEDS ORDERED: Bisacodyl 10 MG Supp RECTAL PRN (10:24)
--- NOTE | 2021-05-11 10:35 | PCM.DEL ---
L & D Note - General Info Date of Service: 05/11/21 Mother's Due Date: 05/06/21 - Delivery Note Labor: Spontaneous Delivery Outcome: Stillbirth Presentation: Vertex Nuchal Cord: None Amniotic Fluid Description: Clear Episiotomy Type: Midline Laceration: 1st Degree (hemostatic without rpeair) Placenta: Intact, Spontaneous Cord: 3 Vessels Resuscitation Needed: Yes : Suctioned, Cathether, Stimulated, Warmed Score 1 min: 8 Score 5 min: 8 Delivery Comments (Free Text/Narrative):: Live male infant, weight 3550g - General Info Date of Service: 05/11/21 - Patient Data Weight - Most Recent: 64.864 kg Lab Results Last 24 Hours: Laboratory Results - last 24 hr 05/11/21 05/11/21 05/11/21 Range/Units 05:20 05:20 05:34 WBC 10.75 (4.0-11.0) K/uL RBC 4.61 (4.30-5.90) M/uL Hgb 13.8 (12.0-16.0) g/dL Hct 41.1 (36.0-46.0) % MCV 89.2 (80.0-98.0) fL MCH 29.9 (27.0-32.0) pg MCHC 33.6 (31.0-37.0) g/dL RDW Std Deviation 48.3 (28.0-62.0) fl RDW Coeff of Magalie 15 (11.0-15.0) % Plt Count 250 (150-400) K/uL MPV 12.50 H (7.40-12.00) fL Nucleated RBC % 0.0 /100WBC Nucleated RBCs # 0 K/uL SARS-CoV-2 RNA (ENEIDA) NEGATIVE (NEGATIVE) Blood Type A POSITIVE Antibody Screen NEGATIVE Med Orders - Current: Current Medications Butorphanol Tartrate (Butorphanol 1 Mg/Ml Sdv) 1 mg IVPUSH Q1H PRN PRN Reason: Pain (severe 7-10) Carboprost Tromethamine (Carboprost Tromethamine 250 Mcg/1 Ml Amp) 250 mcg IM ASDIRECTED PRN PRN Reason: Post Hemorrhage Lactated Ringer's (Ringers, Lactated) 1,000 mls @ 150 mls/hr IV ASDIRECTED [place] Oxytocin/Sodium Chloride (Oxytocin 30 Unit In Ns 0.9% 500 Ml Premix) 30 unit in 500 mls @ 999 mls/hr IV TITRATE [place] Tranexamic Acid 1,000 mg/ (Sodium Chloride) 110 mls @ 660 mls/hr IV ONETIME PRN PRN Reason: Bleeding Oxytocin/Sodium Chloride (Oxytocin 30 Unit In Ns 0.9% 500 Ml Premix) 30 unit in 500 mls @ 2 mls/hr IV TITRATE [place]; Protocol Lidocaine HCl (Lidocaine 1% 50 Ml Mdv) 50 ml INJECT ONETIME PRN PRN Reason: Laceration repair Methylergonovine Maleate (Methylergonovine 0.2 Mg/1 Ml Amp) 0.2 mg IM ASDIRECTED PRN PRN Reason: Post Hemorrhage Misoprostol (Misoprostol 200 Mcg Tab) 200 mcg PO ONETIME PRN PRN Reason: Post Hemorrhage Misoprostol (Misoprostol 25 Mcg (1/4 Of 100 Mcg) Tab) 25 mcg VAG ONETIME PRN PRN Reason: Cervical Ripening Misoprostol (Misoprostol 25 Mcg (1/4 Of 100 Mcg) Tab) 25 mcg VAG Q4H PRN PRN Reason: Cervical Ripening Nalbuphine HCl (Nalbuphine 10 Mg/1 Ml Vial) 10 mg IVPUSH Q1H PRN PRN Reason: Pain (severe 7-10) Sodium Chloride (Sodium Chloride 0.9% 10 Ml Syringe) 10 ml FLUSH ASDIRECTED PRN PRN Reason: Keep Vein Open Sodium Chloride (Sodium Chloride 0.9% 2.5 Ml Syringe) 2.5 ml FLUSH ASDIRECTED PRN PRN Reason: Keep Vein Open Sodium Chloride (Sodium Chloride 0.9% 20 Ml Sdv) 10 ml FLUSH ASDIRECTED PRN PRN Reason: IV Use Sterile Water (Water For Irrigation,Sterile 1,000 Ml Container) 1,000 ml IRR ASDIRECTED PRN PRN Reason: delivery Terbutaline Sulfate (Terbutaline 1 Mg/Ml Sdv) 0.25 mg SUBCUT ASDIRECTED PRN PRN Reason: Tacysystole Discontinued Medications Lidocaine HCl (Lidocaine 1% 20 Ml Mdv) Confirm Administered Dose 20 ml .ROUTE .[facility] ONE Stop: 05/11/21 07:54 Sodium Chloride (Sodium Chloride 0.9% 20 Ml Sdv) 10 ml IV ASDIRECTED PRN PRN Reason: IV Use - Problem List & Annotations (1) Vaginal delivery SNOMED Code(s): 298123730 Code(s): O80 - ENCOUNTER FOR FULL-TERM UNCOMPLICATED DELIVERY Status: Acute Current Visit: No - Problem List Review Problem List Initiated/Reviewed/Updated: Yes - My Orders Last 24 Hours: My Active Orders 05/11/21 10:24 Patient Status [ADT] Routine May Shower [RC] ASDIRECTED Notify Provider Vital Signs [RC] ASDIRECTED Up ad [place] [RC] ASDIRECTED Vital Signs [RC] PER UNIT ROUTINE Acetaminophen [Tylenol Extra Strength] 1,000 mg PO Q6H PRN Benzocaine/Menthol [Dermoplast Pain Relief 20%-0.5% [place]] 78 gm TOP ASDIRECTED PRN Docusate Sodium [Colace] 100 mg PO Q12H PRN Ibuprofen [Motrin] 800 mg PO Q8H PRN Lanolin [Lansinoh HPA] See Dose Instructions TOP ASDIRECTED PRN bisacodyL [Dulcolax] 10 mg RECTAL ONETIME PRN oxyCODONE 5 mg PO Q2H PRN witch Cy [Tucks] 1 pad TOP ASDIRECTED PRN Assess Lochia [WOMSER] Per Unit Routine Assess Uterine Involution [WOMSER] Per Unit Routine Breast Pump [WOMSER] Per Unit Routine Peripheral IV Discontinue [OM.PC] Routine 05/11/21 10:25 Cooling Warming Measures [RC] ASDIRECTED Ice Therapy [OM.PC] Per Unit Routine Perineal Care [OM.PC] Per Unit Routine Sitz Bath [OM.PC] Per Unit Routine 05/11/21 Lunch Regular Diet [DIET] 05/12/21 05:11 HEMOGLOBIN/HEMATOCRIT,HH [HEME] Timed - Assessment Assessment:: 31yo s/p at 40w5d - Plan Plan:: Admit to unit for routine cares. A+, rubella equivocal, GBS negative History of hemorrhage, has good uterine tone and minimal bleeding.
[2021-05-11] MEDS: Ibuprofen 800 MG Tab PO PRN ×2 (11:15→19:31)
--- NOTE | 2021-05-11 11:54 | OR ---
SURGEON: Lourdes Rader MD DATE OF PROCEDURE: 05/11/2021 PREOPERATIVE DIAGNOSES: 1. 31-year-old G4, P3-0-0-3 at 40 weeks and 5 days' gestation. 2. Labor. 3. Group B Streptococcus negative. POSTOPERATIVE DIAGNOSES: 1. 31-year-old G4, P4-0-0-4 at 40 weeks and 5 days' gestation. 2. Labor. 3. Group B Streptococcus negative. PROCEDURE: Spontaneous vaginal delivery. PRIMARY SURGEON: Lourdes Rader MD ANESTHESIA: None. ESTIMATED BLOOD LOSS: 300 mL. FINDINGS: Live male in cephalic presentation. score 8 and 8 at 1 and 5 minutes respectively. Weight 3550 g. Placenta intact with 3-vessel cord. First-degree perineal laceration, hemostatic without repair. DESCRIPTION OF PROCEDURE: This is a 31-year-old G4, P3-0-0-3, who presented at 40 weeks and 5 days' gestation, complaining of contractions. She was admitted to Labor and Delivery for expectant management of labor. The patient did not desire any medication for pain control. She progressed to complete cervical dilation and I was called to the room. I presented to the patient's room and the was at +3 station. The patient desired pushing on hands and knees, as this was the most comfortable for her. Over the next 2 contractions, she pushed and delivered a live male . The head was delivered followed quickly by the shoulders and remainder of the body. The infant was passed between the maternal legs and she held him as she turned onto her back. After 3 minutes, the cord was clamped and cut. Cord blood was obtained. The placenta then delivered intact on 3-vessel cord via the Coates- Koehler maneuver. The perineum was inspected and a first-degree perineal laceration was noted. This was hemostatic without repair. Fundus was firm below the umbilicus. There was minimal bleeding. [id number] / MODL /[id number] MTDD
[2021-05-11] MEDS: Acetaminophen 500 MG Tab PO PRN (16:32)
[2021-05-11] MEDS: Docusate Sodium 100 MG Cap PO PRN (19:31)
[2021-05-12] MEDS: Acetaminophen 500 MG Tab PO PRN (00:52)
[2021-05-12] MEDS: Ibuprofen 800 MG Tab PO PRN (06:36)
--- NOTE | 2021-05-12 08:34 | PCM.PNPP ---
- General Info Date of Service: 05/12/21 Functional Status: Reports: Pain Controlled, Tolerating Diet, Ambulating, Urinating - Review of Systems General: Reports: No Symptoms HEENT: Reports: No Symptoms Pulmonary: Reports: No Symptoms Cardiovascular: Reports: No Symptoms Gastrointestinal: Reports: No Symptoms Genitourinary: Reports: No Symptoms Musculoskeletal: Reports: No Symptoms Skin: Reports: No Symptoms Neurological: Reports: No Symptoms Psychiatric: Reports: No Symptoms - General Info Date of Service: 05/12/21 - Patient Data Vital Signs - Most Recent: Last Vital Signs Temp 36.2 C 05/11/21 19:24 Pulse 71 05/11/21 19:24 Resp 18 05/11/21 19:24 BP 114/72 05/11/21 19:24 Pulse Ox 97 05/11/21 19:24 Weight - Most Recent: 64.864 kg Lab Results - Last 24 Hours: Laboratory Results - last 24 hr 05/12/21 Range/Units 06:41 Hgb 12.5 (12.0-16.0) g/dL Hct 37.1 (36.0-46.0) % Med Orders - Current: Current Medications Acetaminophen (Acetaminophen 500 Mg Tab) 1,000 mg PO Q6H PRN PRN Reason: Pain (mild 1-3) Last Admin: 05/12/21 00:52 Dose: 1,000 mg Documented by: Benzocaine/Menthol (Benzocaine/Menthol 20%-0.5% [place] 78 Gm Cannister) 78 gm TOP ASDIRECTED PRN PRN Reason: Perineal Comfort Measure Last Admin: 05/11/21 11:14 Dose: 1 canister Documented by: Bisacodyl (Bisacodyl 10 Mg Supp) 10 mg RECTAL ONETIME PRN PRN Reason: Constipation Butorphanol Tartrate (Butorphanol 1 Mg/Ml Sdv) 1 mg IVPUSH Q1H PRN PRN Reason: Pain (severe 7-10) Carboprost Tromethamine (Carboprost Tromethamine 250 Mcg/1 Ml Amp) 250 mcg IM ASDIRECTED PRN PRN Reason: Post Hemorrhage Docusate Sodium (Docusate Sodium 100 Mg Cap) 100 mg PO Q12H PRN PRN Reason: Constipation Last Admin: 05/11/21 19:31 Dose: 100 mg Documented by: Emollient Ointment (Lanolin 100% Cream 7 Gm Tube) 0 gm TOP ASDIRECTED PRN PRN Reason: Sore Nipples Last Admin: 05/11/21 11:15 Dose: 1 tub Documented by: Lactated Ringer's (Ringers, Lactated) 1,000 mls @ 150 mls/hr IV ASDIRECTED [place] Oxytocin/Sodium Chloride (Oxytocin 30 Unit In Ns 0.9% 500 Ml Premix) 30 unit in 500 mls @ 999 mls/hr IV TITRATE [place] Last Admin: 05/11/21 10:06 Dose: 999 mls/hr Documented by: Tranexamic Acid 1,000 mg/ (Sodium Chloride) 110 mls @ 660 mls/hr IV ONETIME PRN PRN Reason: Bleeding Oxytocin/Sodium Chloride (Oxytocin 30 Unit In Ns 0.9% 500 Ml Premix) 30 unit in 500 mls @ 2 mls/hr IV TITRATE [facility]; Protocol Ibuprofen (Ibuprofen 800 Mg Tab) 800 mg PO Q8H PRN PRN Reason: Cramping Last Admin: 05/12/21 06:36 Dose: 800 mg Documented by: Lidocaine HCl (Lidocaine 1% 50 Ml Mdv) 50 ml INJECT ONETIME PRN PRN Reason: Laceration repair Methylergonovine Maleate (Methylergonovine 0.2 Mg/1 Ml Amp) 0.2 mg IM ASDIRECTED PRN PRN Reason: Post Hemorrhage Misoprostol (Misoprostol 200 Mcg Tab) 200 mcg PO ONETIME PRN PRN Reason: Post Hemorrhage Misoprostol (Misoprostol 25 Mcg (1/4 Of 100 Mcg) Tab) 25 mcg VAG ONETIME PRN PRN Reason: Cervical Ripening Misoprostol (Misoprostol 25 Mcg (1/4 Of 100 Mcg) Tab) 25 mcg VAG Q4H PRN PRN Reason: Cervical Ripening Nalbuphine HCl (Nalbuphine 10 Mg/1 Ml Vial) 10 mg IVPUSH Q1H PRN PRN Reason: Pain (severe 7-10) Oxycodone HCl (Oxycodone 5 Mg Tab) 5 mg PO Q2H PRN PRN Reason: Pain (severe 7-10) Sodium Chloride (Sodium Chloride 0.9% 10 Ml Syringe) 10 ml FLUSH ASDIRECTED PRN PRN Reason: Keep Vein Open Sodium Chloride (Sodium Chloride 0.9% 2.5 Ml Syringe) 2.5 ml FLUSH ASDIRECTED PRN PRN Reason: Keep Vein Open Sodium Chloride (Sodium Chloride 0.9% 20 Ml Sdv) 10 ml FLUSH ASDIRECTED PRN PRN Reason: IV Use Sterile Water (Water For Irrigation,Sterile 1,000 Ml Container) 1,000 ml IRR ASDIRECTED PRN PRN Reason: delivery Last Admin: 05/11/21 10:30 Dose: 1,000 ml Documented by: Terbutaline Sulfate (Terbutaline 1 Mg/Ml Sdv) 0.25 mg SUBCUT ASDIRECTED PRN PRN Reason: Tacysystole Witch Lizz (Witch Lizz Medicated Pads 40/Jar) 1 pad TOP ASDIRECTED PRN PRN Reason: comfort care Last Admin: 05/11/21 11:15 Dose: 1 tub Documented by: Discontinued Medications Lidocaine HCl (Lidocaine 1% 20 Ml Mdv) Confirm Administered Dose 20 ml .ROUTE .[employer] ONE Stop: 05/11/21 07:54 Last Admin: 05/11/21 13:01 Dose: Not Given Documented by: Sodium Chloride (Sodium Chloride 0.9% 20 Ml Sdv) 10 ml IV ASDIRECTED PRN PRN Reason: IV Use - Infant Interaction Disposition, : in Room with Family Interaction: Holding Infant Feeding: Breastfed ; Nursed Well Support Person: - Recovery Exam Fundal Tone: Firm Fundal Level: 1 Fingerbreadths Below Umbilicus Fundal Placement: Midline Lochia Amount: Small Lochia Color: Rubra/Red Perineum Description: Intact, Minimal Bruising/Swelling, Other (see below) Other Perinuem Description: 1st degree laceration - not repaired. Episiotomy/Laceration: Approximated Bladder Status: Voiding Urinary Elimination: Voided - Exam General: Alert, Oriented Lungs: Normal Respiratory Effort GI/Abdominal Exam: Soft, Non-Tender, No Distention Extremities: Non-Tender, No Pedal Edema Skin: Warm, Dry, Intact Neurological: No New Focal Deficit Psy/Mental Status: Alert, Normal Affect, Normal Mood - Problem List & Annotations (1) Vaginal delivery SNOMED Code(s): 919569751 Code(s): O80 - ENCOUNTER FOR FULL-TERM UNCOMPLICATED DELIVERY Status: Acute Current Visit: No - Problem List Review Problem List Initiated/Reviewed/Updated: Yes - My Orders Last 24 Hours: My Active Orders 05/12/21 08:32 Ready for Discharge [RC] PER UNIT ROUTINE - Assessment Assessment:: 31yo s/p at 40w5d PPD#1 after . Stable, minimal lochia, well. Would like to go home today. - Plan Plan:: Discharge instructions reviewed.
[2021-05-12] MEDS: Docusate Sodium 100 MG Cap PO PRN (09:07)
[2021-05-12] MEDS ORDERED: Measles, Mumps & Rubella Vaccine 0.5 ML SDV SUBCUT ONE (14:31)
[2021-05-12 17:54] VITALS: BP 115/80; PULSE 77
== END 2021-05-12 16:06 | disposition home or self-care (01) | DRG 560 ==
LOC: MW.OBCHECK 04:59 → MW.OB 05:00 → MW.OBCHECK 05:37 → OBSVTOIN 10:24 → MW.OB 14:28
PROVIDERS: ADMIT Obstetrics & Gynecology; ATTEND Obstetrics & Gynecology
PROC: 10E0XZZ Delivery of Products of Conception, External Approach (ICD-10-PCS; principal; 2021-05-11)
PROC: 0HQ9XZZ Repair Perineum Skin, External Approach (ICD-10-PCS; 2021-05-11)
DX: O48.0 Post-term pregnancy (principal); Z3A.40 40 weeks gestation of pregnancy; Z37.0 Single live birth; O70.0 First degree perineal laceration during delivery; Z20.822 Contact with and (suspected) exposure to COVID-19
CPT/HCPCS: 36415; 85014; 85018; 85027; 86592; 86850; 86900; 86901; 90707; A9270-GY; J2590; U0002

== ENCOUNTER 2022-07-27 13:41 | Emergency (ER) | payer BC ==
[2022-07-27] MEDS ORDERED: Sodium Chloride 0.9% 10 ML Syringe FLUSH PRN (13:43)
[2022-07-27] MEDS ORDERED: Sodium Chloride 0.9% 2.5 ML Syringe FLUSH PRN (13:43)
[2022-07-27 14:46] LABS: CARBON DIOXIDE,CO2 24.4 mmol/L (21.0-32.0); POTASSIUM,K 3.7 mmol/L (3.5-5.1)
[2022-07-27 15:05] LABS: CORONAVIRUS COVID-19 NAA NEGATIVE (NEGATIVE); INFLUENZA A NAA NEGATIVE (NEGATIVE); INFLUENZA B NAA NEGATIVE (NEGATIVE)
[2022-07-27] MEDS ORDERED: Iopamidol 755 MG/ML 500 ML Multipack Bottle IVPUSH ONE (15:08)
[2022-07-27] MEDS ORDERED: Sodium Chloride 0.9% 1,000 ML IV ONE (15:11)
[2022-07-27 16:14] VITALS: BP 125/68; PULSE 75
== END 2022-07-27 16:12 | disposition home or self-care (01) ==
LOC: MW.ED 13:41
DX: R10.31 Right lower quadrant pain (principal); Z88.0 Allergy status to penicillin; Z88.2 Allergy status to sulfonamides; Z88.1 Allergy status to other antibiotic agents; Z20.822 Contact with and (suspected) exposure to COVID-19
CPT/HCPCS: 0240U; 36415; 74177; 80053; 81003; 81025; 83690; 85025; 99284; J3490; J7030; Q9967